=== PATIENT | female | born 1955 | race African-American/Black ===

== ENCOUNTER 2024-09-20 08:19 | Outpatient (CLI) | payer MEDICARE, SELFPAY ==
--- NOTE | ~2024-09-20 | US_ITS ---
US breast RT limited 09/20/2024 09:04 Indication: Right breast mass identified at outside institution and biopsy recommended. Procedure: High-resolution Limited ultrasound of the right breast Comparison: Ultrasound dated 08/29/2024 Findings: At 8:00, 6 cm from the nipple there is a 4 mm oval parallel oriented hypoechoic mass with e ncapsulated margins, no internal vascularity and no posterior features, likely benign. Following disc ussion with the patient she agreed to 6 month follow-up ultrasound rather than biopsy due to the pinky gn appearance of the mass. Impression: 1: Benign-appearing 4 mm right breast mass at 8:00, 6 cm from the nipple. BI-RADS CATEGORY 3-PROBABLY BENIGN FINDING RECOMMENDATION: 6 month follow-up diagnostic mammogram and Limited right breast ultrasound recommende d. Reviewed, dictated and finalized at location B. OG IC DESIGN ARCHITECT Impression: 1: Benign-appearing 4 mm right breast mass at 8:00, 6 cm from the nipple. BI-RADS CATEGORY 3-PROBABLY BENIGN FINDING RECOMMENDATION: 6 month follow-up diagnostic mammogram and Limited right breast ultrasound recommended.
--- OUTSIDE RECORDS SUMMARY | 2024-09-20 08:25 | XMS_ITS | Referral Summary ---
Author Organization [facility] Address [address] [place] [address] Care Team Providers Care Food Quality Technician Name Role Phone Marianne Stewart MD Primary Care Provider [phone] Encounters Date Type Department Care Team Description 09/03/2024 Orders Only [facility] Medical [facility] Gastroenterology at [place] [address] [facility] [address] [place] [address] Carlos Sandhu MD Screening for colon cancer (Primary Dx) 09/03/2024 Orders Only [facility] Medical Office [address] [phone] Faye Hurt NP Mass of right breast, unspecified quadrant (Primary Dx) 08/29/2024 9:09 AM VIDEO CONFERENCE SPECIALIST - 08/29/2024 11:59 PM VIDEO CONFERENCE SPECIALIST Hospital Encounter [facility] Medical Office [address] [phone] Abnormal mammogram Discharge Disposition: Discharge to home or self care 08/28/2024 Telephone [facility] Medical [facility] Family Medicine [address] [place] [address] Marianne Stewart MD Additional Services Or Orders 08/27/2024 12:41 PM VIDEO CONFERENCE SPECIALIST - 08/27/2024 11:59 PM VIDEO CONFERENCE SPECIALIST Hospital Encounter [facility] Breast Imaging [address] [place] [address] Encounter for screening mammogram for malignant neoplasm of breast Discharge Disposition: Discharge to home or self care 08/22/2024 10:30 AM VIDEO CONFERENCE SPECIALIST Telemedicine [facility] Medical Group Family Medicine [address] [place] [phone] Faye Hurt NP Mixed hyperlipidemia (Primary Dx); Hypertension, essential; Type 2 diabetes mellitus with hyperlipidemia (HCC); Vitamin D deficiency; Annual physical exam; Screening for colon cancer; Encounter for screening mammogram for malignant neoplasm of breast 07/31/2024 12:35 PM VIDEO CONFERENCE SPECIALIST Lab [facility] Lab [address] [place] [address] Type 2 diabetes mellitus with hyperlipidemia (HCC); Hyperlipidemia, unspecified hyperlipidemia type 07/16/2024 Orders Only [facility] CT [address] [place] [id number] Faye Hurt NP Nicotine dependence, cigarettes, uncomplicated (Primary Dx) 07/10/2024 12:52 PM VIDEO CONFERENCE SPECIALIST - 07/10/2024 11:59 PM VIDEO CONFERENCE SPECIALIST Hospital Encounter [facility] [address] [place] [address] Nicotine dependence, cigarettes, uncomplicated Discharge Disposition: Discharge to home or self care 06/27/2024 Orders Only [facility] CT [facility] [place] [address] Naz Esparza RN Nicotine dependence, cigarettes, uncomplicated from Last 3 Months Allergies Active Allergy Reactions Criticality Noted Date Comments Aspirin Nausea & Vomiting Low 05/16/2003 Atorvastatin Muscle pain Medium 07/19/2016 Ibuprofen Nausea & Vomiting Low 10/13/2006 Lovastatin Muscle pain Medium 11/07/2014 Pravastatin Muscle pain Medium 06/24/2009 Simvastatin Muscle pain Medium 06/06/2008 Medications UNABLE TO FIND Vitamin C complex take 1 tab po daily Active cholecalciferol (VITAMIN D-3) 2000 unit tablet Take 1 tablet (2,000 Units total) by mouth daily Active rosuvastatin (CRESTOR) 40 mg tablet Take 1 tablet (40 mg total) by mouth daily 90 tablet 1 Active amLODIPine (NORVASC) 10 mg tabletIndicatio ns:hypertension Take 1 tablet (10 mg total) by mouth daily 90 tablet 3 5 08/22/19 26 Active chlorthalidone (HYGROTON) 25 mg tabletIndicatio ns:Hypertension , essential Take 1 tablet (25 mg total) by mouth daily 90 tablet 3 5 08/22/19 26 Active empagliflozin (JARDIANCE) 10 mg tabletIndicatio ns:Heart Failure Take 1 tablet (10 mg total) by mouth daily 90 tablet 1 5 08/22/19 26 Active polyethylene glycol-electrol ytes 420 gram solution Take 4,000 mL by mouth once 5 Active rosuvastatin (CRESTOR) 40 mg tablet Take 1 tablet (40 mg total) by mouth daily 3 08/22/19 25 Discontinue d(Reorder) empagliflozin (JARDIANCE) 10 mg tabletIndicatio ns:Heart Failure Take 1 tablet (10 mg total) by mouth daily 90 tablet 3 3 08/22/19 25 Discontinue d(Reorder) chlorthalidone (HYGROTON) 25 mg tablet Take 1 tablet (25 mg total) by mouth daily 90 tablet 3 4 08/22/19 25 Discontinue d(Reorder) amLODIPine (NORVASC) 10 mg tabletIndicatio ns:hypertension Take 1 tablet (10 mg total) by mouth daily 90 tablet 3 4 08/22/19 25 Discontinue d(Reorder) buPROPion XL (WELLBUTRIN XL) 150 mg 24 hr tabletIndicatio ns:Smoking,Situ ational anxiety Take 1 tablet (150 mg total) by mouth every morning 90 tablet 4 08/22/19 25 Discontinue d(Patient Reported) polyethylene glycol (GaviLyte-N) 236-22.74-6.74 -5.86 gram solution Take 4,000 mL by mouth once for 1 dose 4000 mL 5 09/03/19 25 Active Problems Problem Noted Date Diagnosed Date Screening for colon cancer 09/03/2024 Mixed hyperlipidemia 08/22/2024 Hypertension, essential 03/29/2024 Assessment & Plan (04/09/2024 5:45 AM CDT): Chronic Stable Cont norvasc, chlorthalidone Goal: SBP<140, DBP<90 Type 2 diabetes mellitus with hyperlipidemia Assessment & Plan (04/09/2024 5:46 AM CDT): Chronic Stable Cont jardiance Goal: hgba1c<6.5 Osteopenia of lumbar spine 03/29/2024 Assessment & Plan (04/09/2024 5:45 AM CDT): Chronic Take OTC calcium Vitamin D deficiency 03/29/2024 Assessment & Plan (04/09/2024 5:47 AM CDT): Chronic Stable Cont otc vitamin d Smoking 03/29/2024 Assessment & Plan (04/09/2024 5:46 AM CDT): Patient advised on smoking cessation. Counseled on ways to cut back and advised to call office if would like advice on methods and medications used to help quit smoking. This is a chronic problem and would always recommend reducing amount of smoking in hopes of quitting completely. Spent 3-10 minutes Start wellbutrin Situational anxiety 03/29/2024 Assessment & Plan (04/09/2024 5:46 AM CDT): New Start wellbutrin Knee pain 02/20/2015 Immunizations Name Administration Dates Next Due Influenza, Quadrivalent, Spl it, Preservative Free, Intramuscular 06/06/2018,05/27/2017 Influenza, Trivalent, Preser vative Free, Intramuscular 06/03/2016,05/19/2015 Influenza, Unspecified 05/15/2023(Deferr ed: Patient Refused),05/13/2014,05/21/2013, 012,05/05/2011,05/28/2010,04/29/2009,0 08/28/2008 Moderna SARS-CoV-2 Monovalen t Vaccination (12+ YRS) 07/03/2021,10/27/2020,09/29/2020 Pneumococcal, Unspecified 04/22/2010 Td, Unspecified 06/18/2003 Tdap 04/24/2013 Social History Tobacco Use Types Packs/Day Years Used Date Smoking Tobacco: Every Day Cigarettes 0.5 40 Smokeless Tobacco: Never Tobacco Cessation:Ready to Q uit: No; Counseling Given: Not Answered Comments:Per lung screen order 01/31/23 AUDIT-C Answer Date Recorded Q1: How often do you have a drink containing alc ohol? 2-3 times a week 09/18/2024 Q2: How many drinks containi ng alcohol do you have on a typical day when you are drinking? 3 or 4 09/18/2024 Q3: How often do you have si x or more drinks on one occasion? Less than monthly 09/18/2024 PHQ-2 Answer Date Recorded PHQ-2 Total Score (If total score is 3 or more points, staff should administer the PHQ-9) 6 04/27/2024 Comments No Sex and Gender Information Value Date Recorded Sex Assigned at Not on file Legal Sex Female 11:34 AM VIDEO CONFERENCE SPECIALIST Gender Identity Not on file Sexual Orientation Not on file Last Filed Vital Signs Vital Sign Reading Time Taken Comments Blood Pressure 137/87 08/22/2024 10:26 AM VIDEO CONFERENCE SPECIALIST Pulse 91 03/29/2024 1:16 PM CDT Temperature 36.4 C (97.5 F) 03/29/2024 1:16 PM CDT Respiratory Rate 14 03/29/2024 1:16 PM CDT Oxygen Saturation 94% 03/29/2024 1:16 PM CDT Inhaled Oxygen Concentration - - Weight 83.9 kg (185 lb) 08/22/2024 10:26 AM VIDEO CONFERENCE SPECIALIST Height 158.8 cm (5' 2.5 ) 08/22/2024 10:26 AM CS T Body Mass Index 33.3 08/22/2024 10:26 AM VIDEO CONFERENCE SPECIALIST Plan of Treatment Upcoming Encounters Date Type Department Care Team (Late st Contact Info) Description 09/24/2024 10:30 AM VIDEO CONFERENCE SPECIALIST Hospital Encounter [facility] GI Lab [address] [place] [address] Carlos Sandhu MD [address] [address] 09/24/2024 10:30 AM VIDEO CONFERENCE SPECIALIST - 09/24/2024 11:00 AM VIDEO CONFERENCE SPECIALIST Surgery [facility] GI Lab [address] [place] [address] Carlos Sandhu MD [address] [place] [address] COLONOSCOPY Scheduled Procedures Name Priority Associated Diagnoses Date/Ti me COLONOSCOPY Screening for colon cancer 09/24/2024 10:30 AM VIDEO CONFERENCE SPECIALIST Procedures Procedure Name Priority Date/Time Associated Diagnosis Comments US BREAST BILATERAL LIMITED Schedule Routine, Read Routine (OP Routine) 08/29/2024 9:45 AM VIDEO CONFERENCE SPECIALIST Abnormal mammogram SCREENING MAMMOGRAM BILATERAL W EZRA Schedule Routine, Read Routine (OP Routine) 08/27/2024 12:56 PM VIDEO CONFERENCE SPECIALIST Encounter for screening mammogram for malignant neoplasm of breast EGFR Routine 07/31/2024 12:46 PM VIDEO CONFERENCE SPECIALIST Type 2 diabetes mellitus with hyperlipidemia (HCC) Hyperlipidemia, unspecified hyperlipidemia type COMPREHENSIVE METABOLIC PANEL Routine 07/31/2024 12:46 PM VIDEO CONFERENCE SPECIALIST Type 2 diabetes mellitus with hyperlipidemia (HCC) Hyperlipidemia, unspecified hyperlipidemia type LIPID PANEL Routine 07/31/2024 12:46 PM VIDEO CONFERENCE SPECIALIST Type 2 diabetes mellitus with hyperlipidemia (HCC) Hyperlipidemia, unspecified hyperlipidemia type CT LUNG CANCER SCREENING Schedule Routine, Read Routine (OP Routine) 07/10/2024 12:59 PM VIDEO CONFERENCE SPECIALIST Nicotine dependence, cigarettes, uncomplicated HEMOGLOBIN A1C Routine 04/10/2024 9:04 AM CDT Hypertension, essential Type 2 diabetes mellitus with hyperlipidemia (HCC) Osteopenia of lumbar spine Vitamin D deficiency ALBUMIN CREATININE RATIO, URINE Routine 04/10/2024 8:59 AM CDT Hypertension, essential Type 2 diabetes mellitus with hyperlipidemia (HCC) Osteopenia of lumbar spine Vitamin D deficiency DEXA AXIAL SKELETON BONE DENSITY 1 OR MORE SITES Schedule Routine, Read Routine (OP Routine) 02/07/2023 2:03 PM CDT Postmenopausal state from Last 3 Months or Most Recently Relevant to Health Maintenance Results * (ABNORMAL) US Breast Bilateral Limited (08/29/2024 9:45 AM VIDEO CONFERENCE SPECIALIST) Anatomical Region Laterality Modality Breast Bilateral Ultrasound 08/30/2024 2:31 PM VIDEO CONFERENCE SPECIALIST Impressions 08/30/2024 2:31 PM VIDEO CONFERENCE SPECIALIST Ultrasound-guided biopsy of the 8:00 right breast mass is recommended. OVERALL FINAL ASSESSMENT: BI-RADS 4A-mildly suspicious for malignancy. Tissue diagnosis is recommended. Electronically signed by: Danielle Mata M.D. Narrative 08/30/2024 2:31 PM VIDEO CONFERENCE SPECIALIST PROCEDURE: BILATERAL LIMITED BREAST ULTRASOUND HISTORY: Additional imaging COMPARISON(S): August 27, 2024, screening bilateral mammogram. Also chest CTs dated 07/10/2024 and 05/16/2023. TECHNIQUE: Cordova scale and color Doppler FINDINGS: Sonography through the 8:00 right breast demonstrates a hypoechoic mass with a maximum dimension of 5 mm. Some of the margins are circumscribed, but some are ill-defined. This accounts for the mammographic mass. In the right axilla, there are lymph nodes with cortical thickening up to 5 mm. Because these were seen, and the left axillary lymph nodes appeared similar, sonography was performed through the left axilla. Sonography through the left axilla demonstrates lymph nodes with eccentric cortical thickening up to 4 mm. The patient's prior chest CTs were reviewed. The lymph nodes appear similar in size and configuration on the CTs. This implies stability since 2022. us Faye Hurt NP IMG MAMMO PROCEDURES Final Res ult * (ABNORMAL) SCREENING MAMMOGRAM BILATERAL W EZRA (08/27/2024 12:56 PM VIDEO CONFERENCE SPECIALIST) Anatomical Region Laterality Modality Breast Bilateral Mammography Impressions 08/27/2024 1:24 PM VIDEO CONFERENCE SPECIALIST BI-RADS ATLAS category (overall): 0 - Incomplete: Needs Additional Imaging Evaluation 1. Indeterminate right breast mass as above. Further evaluation with diagnostic right breast ultrasound is recommended. 2. No mammographic evidence of malignancy in the left breast. Routine screening mammography of the left breast is recommended in 1 year. The patient has been or will be contacted. Narrative 08/27/2024 1:24 PM VIDEO CONFERENCE SPECIALIST SCREENING MAMMOGRAM BILATERAL W EZRA: 08/27/24 The study was acquired using full field digital technology and interpreted from soft copy. 2D digital mammographic views, as well as 3D digital tomosynthesis were performed in the CC and MLO projections. This study was resulted using Computer-Aided Detection (CAD). CLINICAL: Encounter for screening mammogram for malignant neoplasm of breast (Mammogram ordered.). No relevant medical history has been documented for this patient. No known family history of breast cancer. COMPARISONS: 07/27/2023 Screening Mammogram Bilateral W Ezra BREAST TISSUE: There are scattered areas of fibroglandular density. FINDINGS: There is a 4 mm oval circumscribed mass in the lower outer right breast, 5-7 cm from the nipple. There is no new suspicious finding in the left breast on mammogram. us Faye Hurt NP IMG MAMMO PROCEDURES Final Res ult * eGFR (07/31/2024 12:46 PM VIDEO CONFERENCE SPECIALIST) eGFR >90 >=60 mL/min/1. 73 m2 Comment: Interpretive Data Reference Interval Normal >/= 90 mL/min/1.73m2 Mildly decreased* 60 - 89 mL/min/1.73m2 Mildly to moderately decreased 45 - 59 mL/min/1.73m2 Moderately to severely decreased 30 - 44 mL/min/1.73m2 Severely decreased 15 - 29 mL/min/1.73m2 Kidney Failure < 15 mL/min/1.73m2 *Relative to young adult level Estimated glomerular filtration rate is determined by the 2020 CKD-EPI equation recommended by the National Kidney Foundation (A Unifying Approach to GFR Estimation: Recommendations of the NKF-ASK Task Force on Reassessing the Inclusion of Race in Diagnosing Kidney Disease, JASN 2020). The CKD-EPI equation should not be used for patients with unstable renal function and has not been validated in children and those over 70. Current interpretive data was last reviewed 2021. Blood 07/31/2024 12:4 6 PM VIDEO CONFERENCE SPECIALIST 07/31/2024 12:51 PM VIDEO CONFERENCE SPECIALIST us Faye Hurt [facility]O LAB BLOOD ORDERABLES Final Res ult [facility] [address] Department [place] [address] * (ABNORMAL) Lipid panel (07/31/2024 12:46 PM VIDEO CONFERENCE SPECIALIST) Cholesterol 212(H) 30 - 199 mg/dL Comment: Interpretive Data Ages < or = 19 years Acceptable: <170 mg/dL Borderline high: 170-199 mg/dL High: >or= 200 mg/dL Ages > or = 20 years Desirable: <200 mg/dL Borderline high: 200-239 mg/dL High: >or= 240 mg/dL Literature References: 1. Expert Panel on Integrated Guidelines for Cardiovascular Health and Risk Reduction in Children and Adolescents. Pediatrics 2011;128:S213 2. NCEP Expert Panel. Circulation 2004;110:227 Current Interpretive Data was last revised on 2018. Triglycerides 74 <=149 mg/dL [facility] Comment: Interpretive Data Ages < or = 9 years Acceptable: <75 mg/dL Borderline high: 75-99 mg/dL High: >or= 100 mg/dL Ages 10 to 20 years Acceptable: <90 mg/dL Borderline high: 90-129 mg/dL High: >or= 130 mg/dL Ages > or = 20 years Desirable: <150 mg/dL Borderline high: 150-199 mg/dL High: 200-499 mg/dL Very high: >or= 499 mg/dL Literature References: 1. Expert Panel on Integrated Guidelines for Cardiovascular Health and Risk Reduction in Children and Adolescents. Pediatrics 2011;128:S213 2. NCEP Expert Panel. Circulation 2004;110:227 Current Interpretive Data was last revised on 2018. HDL 70 >=40 mg/dL [facility] Comment: Interpretive Data Ages < or = 19 years Acceptable: >45 mg/dL Borderline low: 40-45 mg/dL Low: <40 mg/dL Ages > or = 20 years Desirable: >or= 60 mg/dL Low: <40 mg/dL Literature References: 1. Expert Panel on Integrated Guidelines for Cardiovascular Health and Risk Reduction in Children and Adolescents. Pediatrics 2011;128:S213 2. NCEP Expert Panel. Circulation 2004;110:227 Current Interpretive Data was last revised on 2018. LDL, calculated 129 <=129 mg/dL [facility] Comment: Interpretive Data Ages < or = 19 years Acceptable: <110 mg/dL Borderline high: 110-129 mg/dL High: >or= 130 mg/dL Ages > or = 20 years Optimal: <100 mg/dL Near optimal: 100-129 mg/dL Borderline high: 130-159 mg/dL High: >160 mg/dL Calculated using the Devon LDL-C estimating equation. This equation was implemented on 2024. Prior to this date LDL-C was estimated using the Friedewald equation. Literature References: 1. Expert Panel on Integrated Guidelines for Cardiovascular Health and Risk Reduction in Children and Adolescents. Pediatrics 2011;128:S213 2. NCEP Expert Panel. Circulation 2004;110:227 3. Devon Warren et al. JULIET Cardiol. 2019December 13;5(5):540-548. doi: 10.1001/jamacardio.2020.0013 Current Interpretive Data was last revised on 2024. Non-HDL Cholesterol 142 mg/dL [facility] Comment: Interpretive Data Ages < or = 19 years Acceptable: <120 mg/dL Borderline high: 120-144 mg/dL High: >145 mg/dL Ages > or = 20 years When triglycerides are >200 mg/dL, Non-HDL cholesterol is a secondary target of therapy with treatment goals that are 30 mg/dL greater than the LDL cholesterol target. Literature References: 1. Expert Panel on Integrated Guidelines for Cardiovascular Health and Risk Reduction in Children and Adolescents. Pediatrics 2011;128:S213 2. NCEP Expert Panel. Circulation 2004;110:227 Current Interpretive Data was last revised on 2018. Chol/HDL ratio 3 [facility] Blood 07/31/2024 12:4 6 PM VIDEO CONFERENCE SPECIALIST 07/31/2024 12:51 PM VIDEO CONFERENCE SPECIALIST us Faye Hurt NP LAB BLOOD ORDERABLES Final Res ult [facility] [address] Department [place] [address] * Comprehensive metabolic panel (07/31/2024 12:46 PM VIDEO CONFERENCE SPECIALIST) Sodium 139 135 - 145 mmol/L Potassium, pl 3.8 3.3 - 4.9 mmol/L [facility] Chloride 104 97 - 110 mmol/L [facility] CO2 25 22 - 32 mmol/L [facility] Anion gap 10 2 - 15 mmol/L [facility] BUN 11 6 - 25 mg/dL [facility] Creatinine 0.70 0.60 - 1.10 mg/dL [facility] Glucose 117 70 - 199 mg/dL [facility] Comment: Interpretive Data Fasting glucose >/= 126 mg/dl is diagnostic for diabetes. Fasting is defined as no caloric intake for at least 8 hours. Fasting glucose between 100 mg/dl to 125 mg/dl is diagnostic of prediabetes. In a patient with classic symptoms of hyperglycemia or hyperglycemic crisis, a random glucose >/= 200 mg/dl is diagnostic for diabetes. In the absence of unequivocal hyperglycemia, results should be confirmed by repeat testing. The classification and Diagnosis of Diabetes Diabetes Care 2021; 46: S19-S40. Current interpretive data was last revised 2022. Calcium 9.5 8.5 - 10.3 mg/dL [facility] Bilirubin, total 0.4 0.1 - 1.2 mg/dL [facility] Protein, pl 6.9 6.5 - 8.5 g/dL [facility] Albumin 4.2 3.5 - 5.0 g/dL [facility] Alk phos 71 40 - 130 Units/L [facility] ALT 9 7 - 45 Units/L [facility] AST 16 10 - 45 Units/L [facility] Blood 07/31/2024 12:4 6 PM VIDEO CONFERENCE SPECIALIST 07/31/2024 12:51 PM VIDEO CONFERENCE SPECIALIST us Faye Hurt NP LAB BLOOD ORDERABLES Final Res ult [facility] [address] Department [place] [address] * CT Lung Cancer Screening (07/10/2024 12:59 PM VIDEO CONFERENCE SPECIALIST) Anatomical Region Laterality Modality Chest N/A Computed Tomogra phy 07/15/2024 5:56 PM VIDEO CONFERENCE SPECIALIST Narrative 07/15/2024 6:15 PM VIDEO CONFERENCE SPECIALIST EXAM DESCRIPTION: CT LUNG CANCER SCREENING REASON FOR STUDY: Screening CT of the chest in a current smoker with a 21.5 pack year smoking history. Additional history: None. TECHNIQUE: Low dose CT scan of the chest was performed without intravenous contrast using helical scanning technique. The exam extends from the lung apices through the lung bases. Automatic exposure control was used as a dose optimization technique. NOTE: This study was performed for the specific purposes of lung cancer screening and is not an alternative to diagnostic chest CT. RADIATION DOSE: CT dose index volume (CTDIvol) = 2.96 mGy COMPARISON: 05/16/2023 FINDINGS: SMOKING RELATED LUNG DISEASE: No significant pulmonary emphysema. No pneumonia or pulmonary edema is seen. LUNG NODULES: Unchanged 2 mm lingular pulmonary nodule on image 159. 2 mm posterior juxtapleural nodule in the left lower lobe on image 230 of series 3. CORONARY ARTERY CALCIFICATION: Present OTHER: Cholecystectomy clips are present low attenuation thickening of the left adrenal gland is consistent with adenoma by attenuation. There is overall mild aortic athero sclerotic calcification without thoracic aortic aneurysm. The heart size is normal and there is no pericardial effusion. No mediastinal, axillary or hilar adenopathy is seen. No chest wall mass or inflammation.. There is multilevel degenerative disc disease, most pronounced in the lower cervical spine. No aggressive bone lesion or acute fracture is seen. IMPRESSION: Two 2 mm nodules in the left lung, as detailed. Lung-RADS category 2: Benign appearance or behavior. Recommendation: Low dose Screening CT of chest in 12 months. THIS IS AN ELECTRONICALLY VERIFIED FINAL REPORT 07/15/2024 6:15 PM - Electronically signed by Jared Uribe M.D. MZ T: Report ID: [id number] Reading Location: [id number] Procedure Note Jared Uribe MD - 07/15/2024 EXAM DESCRIPTION: CT LUNG CANCER SCREENING REASON FOR STUDY: Screening CT of the chest in a current smoker with a 21.5 pack year smoking history. Additional history: None. TECHNIQUE: Low dose CT scan of the chest was performed without intravenous contrast using helical scanning technique. The exam extends from the lung apices through the lung bases. Automatic exposure control was used as adose optimization technique. NOTE: This study was performed for the specific purposes of lung cancer screening and is not an alternative to diagnostic chest CT. RADIATION DOSE: CT dose index volume (CTDIvol) = 2.96 mGy COMPARISON: 05/16/2023 FINDINGS: SMOKING RELATED LUNG DISEASE: No significant pulmonaryemphysema. No pneumonia or pulmonary edema is seen. LUNG NODULES: Unchanged 2 mm lingular pulmonary nodule on image 159. 2mm posterior juxtapleural nodule in the left lower lobe on image 230 ofseries 3. CORONARY ARTERY CALCIFICATION: Present OTHER: Cholecystectomy clips are present low attenuation thickening ofthe left adrenal gland is consistent with adenoma by attenuation. There is overall mild aortic athero sclerotic calcification without thoracic aortic aneurysm. The heart size is normal and there is no pericardial effusion.No mediastinal, axillary or hilar adenopathy is seen. No chest wall mass or inflammation.. There is multilevel degenerative disc disease, mostpronounced in the lower cervical spine. No aggressive bone lesion or acute fractureis seen. IMPRESSION: Two 2 mm nodules in the left lung, as detailed. Lung-RADS category 2: Benign appearance or behavior. Recommendation: Low dose Screening CT of chest in 12 months. THIS IS AN ELECTRONICALLY VERIFIED FINAL REPORT 07/15/2024 6:15 PM - Electronically signed by Jared Uribe M.D. MZ T: Report ID: [id number] Reading Location: [place] [address] Faye Hurt NP [facility] [place]EDURES Final Result * (ABNORMAL) Hemoglobin A1c (04/10/2024 9:04 AM CDT) Hgb A1C 6.4(H) 4.0 - 5.6 % Estimated Average Glucose 137 mg/dL [facility] Comment: The ADA recommends reporting an estimated Average Glucose (eAG) with all Hemoglobin A1c results using the equation derived from a study of 507 normal and diabetic adults. Minority populations were underrepresented and children were not included. (Diabetes Care 31:9136-0877, 2008). The eAG is not equivalent to a fasting glucose. Blood 04/10/2024 9:04 AM CDT 04/10/2024 9:20 AM CDT Marianne Stewart MD LAB BLOOD ORDERABLES Jaelyn l Result Performing Organization Address [facility] Co de Phone Number [address] [place] [address] * Albumin Creatinine Ratio, Urine (04/10/2024 8:59 AM CDT) Albumin Ur <12.0 mg/L Comment: Interpretive Data No reference range established. Current interpretive data was last revised 2018. Creatinine Ur 265.0 mg/dL [facility] Comment: Interpretive Data No reference range established. Current interpretive data was last revised 2018. Albumin Creatinine Ratio, Ur <5 1 - 29 mg/g [facility] Urine 04/10/2024 8:59 AM CDT 04/10/2024 9:22 AM CDT Marianne Stewart MD LAB URINE ORDERABLES Jaelyn l Result Performing Organization Address [facility] de Phone Number [address] [place] [address] * Dexa Axial Skeleton Bone Density 1 or 2 Site (02/07/2023 2:03 PM CDT) Anatomical Region Laterality Modality Body N/A Mammography 02/07/2023 3:03 PM CDT Narrative 02/07/2023 3:04 PM CDT EXAM DESCRIPTION: DEXA AXIAL SKELETON BONE DENSITY 1 OR MORE SITES REASON FOR STUDY: 67 y/o year old F with given history of: Postmenopausal status. Patient takes vitamin-D. Gold Layer/Model: [employer] A (S/N [id number]) CLINICAL INFORMATION: Current height: 62 inches Maximum height: 62.5 inches Weight: 199 pounds Risk factors: Smoking COMPARISON: None available FINDINGS: AP LUMBAR SPINE L1-L4: Total BMD is 0.888 g/cm2 T-score is -2.4 LEFT HIP: Total BMD is 0.930 g/cm2 T-score is -0.7 Femoral neck BMD is 0.805 g/cm2 T-score is -1.0 FRAX: 10 year risk for a major osteoporotic fracture is 2.8 %, 10 year risk for a hip fracture is 0.2 % IMPRESSION: Low bone mass REFERENCE: Bone mineral density: Normal (T-score above or = -1.0) Low bone mass (T-score between -1.0 and -2.5) replaces the previously used term osteopenia Osteoporosis (T-score = or below -2.5) Medical evaluation for secondary causes of low bone mineral density may be appropriate. FRAX is a World Health Organization validated fracture risk assessment tool that calculates a person's 10 year probability of a major osteoporosis related fracture and hip fracture. According to the National Osteoporosis Foundation guidelines, postmenopausal women and men age 50 or older with low bone mass and a 10 year probability of a major osteoporosis related fracture = or greater than 20% or a 10 year probability of a hip fracture = or greater than 3% should be considered for treatment. For further information, including treatment recommendations, please refer to the 2019 ISCD Official Positions (http://www.iscd.org) and the NOF's Clinician's Guide to Prevention and Treatment of Osteoporosis (http://www.nof.org/professionals/clinical-guidelines) THIS IS AN ELECTRONICALLY VERIFIED FINAL REPORT 02/07/2023 3:04 PM - Electronically signed by Cleo De Guzman M.D. TW: TW Report ID: [id number] Reading Location: [id number] Procedure Note Cleo De Guzman MD - 02/07/2023 EXAM DESCRIPTION: DEXA AXIAL SKELETON BONE DENSITY 1 OR MORE SITES REASON FOR STUDY: 67 y/o year old F with given history of:Postmenopausal status. Patient takes vitamin-D. Gold Layer/Model: [employer] A (S/N [id number]) CLINICAL INFORMATION: Current height: 62 inches Maximum height: 62.5 inches Weight: 199 pounds Risk factors: Smoking COMPARISON: None available FINDINGS: AP LUMBAR SPINE L1-L4: Total BMD is 0.888 g/cm2 T-score is -2.4 LEFT HIP: Total BMD is 0.930 g/cm2 T-score is -0.7 Femoral neck BMD is 0.805 g/cm2 T-score is -1.0 FRAX: 10 year risk for a major osteoporotic fracture is 2.8 %, 10 year risk fora hip fracture is 0.2 % IMPRESSION: Low bone mass REFERENCE: Bone mineral density: Normal (T-score above or = -1.0) Low bone mass (T-score between -1.0 and -2.5) replaces thepreviously used term osteopenia Osteoporosis (T-score = or below -2.5) Medical evaluation for secondary causes of low bone mineral density may be appropriate. FRAX is a World Health Organization validated fracture risk assessmenttool that calculates a person's 10 year probability of a major osteoporosisrelated fracture and hip fracture. According to the National OsteoporosisFoundation guidelines, postmenopausal women and men age 50 or older with low bonemass and a 10 year probability of a major osteoporosis related fracture = or greater than 20% or a 10 year probability of a hip fracture = or greaterthan 3% should be considered for treatment. For further information, including treatment recommendations, please referto the 2019 ISCD Official Positions (http://www.iscd.org) and the NOF's Clinician's Guide to Prevention and Treatment of Osteoporosis (http://www.nof.org/professionals/clinical-guidelines) THIS IS AN ELECTRONICALLY VERIFIED FINAL REPORT 02/07/2023 3:04 PM - Electronically signed by Cleo De Guzman M.D. TW: KAY Report ID: [id number] Reading Location: [place] [address] Ilene Hester NP IMG DXA PROCEDURES Fi nal Result from Last 3 Months or Most Recently Relevant to Health Maintenance Insurance [employer] MEDICARE HMO Care Teams Food Quality Technician Relationship Specialty Start Date End Date Marianne Stewart MD [address] [place] [address] PCP - General Family Medicine 03/05/24
--- OUTSIDE RECORDS SUMMARY | 2024-09-20 08:25 | XMS_ITS | Clinical Summary ---
Author Organization [facility] Address [address] [place] [address] Care Team Providers Care Supervisor [employer] Name Role Phone Marianne Stewart MD Primary Care Provider [phone] Allergies Active Allergy Reactions Criticality Noted Date [...] by mouth daily 90 tablet 1 5 Active amLODIPine (NORVASC) 10 mg tabletIndicatio ns:hypertension [...] CDT): New Start wellbutrin Knee pain 02/20/2015 Encounters Date Type Department Care Team Description 09/03/2024 Orders Only [facility] [place] [address] [place] [phone] Carlos Sandhu MD Screening for colon cancer (Primary Dx) 09/03/2024 Orders Only [facility] [address] [address] Faye Hurt NP Mass of right breast, unspecified quadrant (Primary Dx) 08/29/2024 9:09 AM CONTROL ROOM OPERATOR - 08/29/2024 11:59 PM CONTROL ROOM OPERATOR Hospital Encounter [facility] [address] [place] [address] Abnormal mammogram Discharge Disposition: Discharge to home or self care 08/28/2024 Telephone [facility] Family Medicine [address] [place] [phone] Marianne Stewart MD Additional Services Or Orders 08/27/2024 12:41 PM CONTROL ROOM OPERATOR - 08/27/2024 11:59 PM CONTROL ROOM OPERATOR Hospital Encounter [facility] Breast Imaging [address] [place] [address] Encounter for screening mammogram for malignant neoplasm of breast Discharge Disposition: Discharge to home or self care 08/22/2024 10:30 AM CONTROL ROOM OPERATOR Telemedicine [facility] Family Medicine [address] [place] [phone] Faye Hurt NP Mixed hyperlipidemia (Primary Dx); Hypertension, essential; Type 2 diabetes mellitus with hyperlipidemia (HCC); Vitamin D deficiency; Annual physical exam; Screening for colon cancer; Encounter for screening mammogram for malignant neoplasm of breast 07/31/2024 12:35 PM CONTROL ROOM OPERATOR Lab [facility] Lab [address] [place] [address] Type 2 diabetes mellitus with hyperlipidemia (HCC); Hyperlipidemia, unspecified hyperlipidemia type 07/16/2024 Orders Only [facility] [place] [address] [place] [address] Faye Hurt NP Nicotine dependence, cigarettes, uncomplicated (Primary Dx) 07/10/2024 12:52 PM CONTROL ROOM OPERATOR - 07/10/2024 11:59 PM CONTROL ROOM OPERATOR Hospital Encounter [facility] Orthopedic [facility] CT [address] [place] [address] Nicotine dependence, cigarettes, uncomplicated Discharge Disposition: Discharge to home or self care 06/27/2024 Orders Only [facility] CT [address] [place] [address] Naz Esparza RN Nicotine dependence, cigarettes, uncomplicated from Last 3 Months Immunizations Name Administration Dates Next Due Influenza, Quadrivalent, Spl it, Preservative Free, Intramuscular 06/06/2018,05/27/2017 Influenza, Trivalent, Preser vative Free, Intramuscular 06/03/2016,05/19/2015 Influenza, Unspecified 05/15/2023(Deferr ed: Patient Refused),05/13/2014,05/21/2013, 012,05/05/2011,05/28/2010,04/29/2009,0 08/28/2008 Moderna SARS-CoV-2 Monovalen t Vaccination (12+ YRS) 07/03/2021,10/27/2020,09/29/2020 Pneumococcal, Unspecified 04/22/2010 Td, Unspecified 06/18/2003 Tdap 04/24/2013 Surgical History Surgery Date Site/Laterality Comments APPENDECTOMY 11/2004 CHOLECYSTECTOMY 11/2003 TUBAL LIGATION 08/15/1981 - 08/14/1982 Medical History Medical History Date Comments Diabetes mellitus (HCC) Hypertension Hyperlipidemia Type 2 diabetes mellitus (HCC) Family History Medical History Relation Name Comments Diabetes Mother Heart attack Mother Heart disease Mother Hypertension Mother Alcohol abuse Other Family history of alcoholism - (Added by TW Conv) Diabetes Other Family history of diabetes mellitus - (Added by TW Conv) Heart disease Other Family history of cardiac disorder - (Added by TW Conv) Hypertension Other Family history of hypertension - (Added by TW Conv) Stroke Other Family history of cerebrovascular accident - (Added by TW Conv) Relation Name Status Comments Mother Other Social History Tobacco Use Types Packs/Day Years [...] on file Legal Sex Female 11:34 AM CONTROL ROOM OPERATOR Gender Identity Not on file Sexual Orientation Not on file Obstetrics History Para Term AB IAB SAB Ectopic Multiple Livin g Live Births 5 5 5 Date Outcome GA Total Labor Labor/2nd/3rd Weight Sex Type Anes PTL Irina A1 A5 Name Clin Term Term Term Term Term Last Filed Vital Signs Vital Sign Reading Time Taken Comments Blood Pressure 137/87 08/22/2024 10:26 AM CONTROL ROOM OPERATOR Pulse 91 03/29/2024 1:16 PM CDT Temperature 36.4 C (97.5 F) 03/29/2024 1:16 PM CDT Respiratory Rate 14 03/29/2024 1:16 PM CDT Oxygen Saturation 94% 03/29/2024 1:16 PM CDT Inhaled Oxygen Concentration - - Weight 83.9 kg (185 lb) 08/22/2024 10:26 AM CONTROL ROOM OPERATOR Height 158.8 cm (5' 2.5 ) 08/22/2024 10:26 AM CS T Body Mass Index 33.3 08/22/2024 10:26 AM CONTROL ROOM OPERATOR Plan of Treatment Upcoming Encounters Date Type Department Care Team (Late st Contact Info) Description 09/24/2024 10:30 AM CONTROL ROOM OPERATOR Hospital Encounter [facility] GI Lab [address] [place] [address] Carlos Sandhu MD [address] [place] [address] 09/24/2024 10:30 AM CONTROL ROOM OPERATOR - 09/24/2024 11:00 AM CONTROL ROOM OPERATOR Surgery [facility] GI Lab [address] [place] [address] Carlos Sandhu MD [address] [place] [address] COLONOSCOPY Scheduled Procedures Name Priority Associated Diagnoses Date/Ti me COLONOSCOPY Screening for colon cancer 09/24/2024 10:30 AM CONTROL ROOM OPERATOR Health Maintenance Due Date Last Done Comments Colon Cancer Screening-Colonoscopy 1955 Hepatitis C Screening 1955 Dilated Eye Exam 1957 Foot Exam 1957 Pneumococcal vaccine 65+ (1 of 2 - PCV) 1963 04/22/2010 Hepatitis B Screening 1975 Zoster Vaccine (1 of 2) 2007 Well Visit 65+ 2022 DTaP/Tdap/Td Vaccine (2 - Td or Tdap) 04/24/2023 04/24/2013, 06/18/2003 Covid-19 Vaccine (4 - 2023-2 5 season) 2024 07/03/2021, 10/27/2020, 09/29/2020 Influenza Vaccine (#1) 2024 8, 05/27/2017, 06/03/2016, Additional history exists Hemoglobin A1C 10/11/2024 04/10/2024 Osteoporosis Screening-Bone Density Scan 02/07/2025 02/07/2023 Albumin Creatinine Ratio, Urine 04/10/2025 Depression Screening 04/27/2025 04/27/2024, 04/27/20 24 Fall Risk Assessment 04/27/2025 04/27/2024 Lung Cancer Screening 07/11/2025 07/10/2024, 023 Lipid Panel 07/31/2025 07/31/2024, 04/10/2024 eGFR 07/31/2025 07/31/2024, 04/10/2024 Breast Cancer Screening-Mammogram 08/27/2025 025, 07/27/2023 Procedures Procedure Name Priority Date/Time Associated Diagnosis Comments US BREAST BILATERAL LIMITED Schedule Routine, Read Routine (OP Routine) 08/29/2024 9:45 AM CONTROL ROOM OPERATOR Abnormal mammogram SCREENING MAMMOGRAM BILATERAL W EZRA Schedule Routine, Read Routine (OP Routine) 08/27/2024 12:56 PM CONTROL ROOM OPERATOR Encounter for screening mammogram for malignant neoplasm of breast EGFR Routine 07/31/2024 12:46 PM CONTROL ROOM OPERATOR Type 2 diabetes mellitus with hyperlipidemia (HCC) Hyperlipidemia, unspecified hyperlipidemia type COMPREHENSIVE METABOLIC PANEL Routine 07/31/2024 12:46 PM CONTROL ROOM OPERATOR Type 2 diabetes mellitus with hyperlipidemia (HCC) Hyperlipidemia, unspecified hyperlipidemia type LIPID PANEL Routine 07/31/2024 12:46 PM CONTROL ROOM OPERATOR Type 2 diabetes mellitus with hyperlipidemia (HCC) Hyperlipidemia, unspecified hyperlipidemia type CT LUNG CANCER SCREENING Schedule Routine, Read Routine (OP Routine) 07/10/2024 12:59 PM CONTROL ROOM OPERATOR Nicotine dependence, cigarettes, uncomplicated HEMOGLOBIN A1C Routine [...] US Breast Bilateral Limited (08/29/2024 9:45 AM CONTROL ROOM OPERATOR) Anatomical Region Laterality Modality Breast Bilateral Ultrasound 08/30/2024 2:31 PM CONTROL ROOM OPERATOR Impressions 08/30/2024 2:31 PM CONTROL ROOM OPERATOR Ultrasound-guided biopsy of the 8:00 right breast mass is recommended. OVERALL FINAL ASSESSMENT: BI-RADS 4A-mildly suspicious for malignancy. Tissue diagnosis is recommended. Electronically signed by: Danielle Mata M.D. Narrative 08/30/2024 2:31 PM CONTROL ROOM OPERATOR PROCEDURE: BILATERAL LIMITED BREAST ULTRASOUND HISTORY: Additional [...] the CTs. This implies stability since 2022. Faye Hurt NP IMG MAMMO PROCEDURES Final Res ult * (ABNORMAL) SCREENING MAMMOGRAM BILATERAL W EZRA (08/27/2024 12:56 PM CONTROL ROOM OPERATOR) Anatomical Region Laterality Modality Breast Bilateral Mammography Impressions 08/27/2024 1:24 PM CONTROL ROOM OPERATOR BI-RADS ATLAS category (overall): 0 - Incomplete: Needs Additional Imaging Evaluation 1. Indeterminate right breast mass as above. Further evaluation with diagnostic right breast ultrasound is recommended. 2. No mammographic evidence of malignancy in the left breast. Routine screening mammography of the left breast is recommended in 1 year. The patient has been or will be contacted. Narrative 08/27/2024 1:24 PM CONTROL ROOM OPERATOR SCREENING MAMMOGRAM BILATERAL W EZRA: 08/27/24 The [...] Res ult * eGFR (07/31/2024 12:46 PM CONTROL ROOM OPERATOR) eGFR >90 >=60 mL/min/1. 73 m2 Comment: [...] reviewed 2021. Blood 07/31/2024 12:4 6 PM CONTROL ROOM OPERATOR 07/31/2024 12:51 PM CONTROL ROOM OPERATOR us Faye Hurt NP LAB BLOOD ORDERABLES Final Res ult [facility] [address] Department [place] [address] * (ABNORMAL) Lipid panel (07/31/2024 12:46 PM CONTROL ROOM OPERATOR) Cholesterol 212(H) 30 - 199 mg/dL Comment: [...] on 2018. Triglycerides 74 <=149 mg/dL [facility] Comment: Interpretive Data Ages [...] on 2018. HDL 70 >=40 mg/dL [facility] Comment: Interpretive Data Ages [...] NCEP Expert Panel. Circulation 2004;110:227 3. Devon M et al. JULIET Cardiol. 2020 December 13;5(5):540-548. doi: 10.1001/jamacardio.2020.0013 Current Interpretive Data was last revised on 2024. Non-HDL Cholesterol 142 mg/dL [facility] Comment: Interpretive Data Ages < [...] revised on 2018. Chol/HDL ratio 3 [facility] Blood 07/31/2024 12:4 6 PM CONTROL ROOM OPERATOR 07/31/2024 12:51 PM CONTROL ROOM OPERATOR Faye Hurt TRUCK TECHNICIAN LAB BLOOD ORDERABLES Final Res ult Performing Organization Address City/[facility]/ZIP Co de Phone Number [facility] [address] Department [place] [address] * Comprehensive metabolic panel (07/31/2024 12:46 PM CONTROL ROOM OPERATOR) Sodium 139 135 - 145 mmol/L Potassium, pl 3.8 3.3 - 4.9 mmol/L [facility] Chloride 104 97 - 110 mmol/L [facility] CO2 25 22 - 32 mmol/L [facility] Anion gap 10 2 - 15 mmol/L [facility] BUN 11 6 - 25 mg/dL [facility] Creatinine 0.70 0.60 - 1.10 mg/dL [facility] Glucose 117 70 - 199 mg/dL [facility] Comment: Interpretive Data Fasting glucose >/= 126 [...] 2022. Calcium 9.5 8.5 - 10.3 mg/dL [facility] Bilirubin, total 0.4 0.1 - 1.2 mg/dL [facility] Protein, pl 6.9 6.5 - 8.5 g/dL [facility] Albumin 4.2 3.5 - 5.0 g/dL [facility] Alk phos 71 40 - 130 Units/L [facility] ALT 9 7 - 45 Units/L [facility] AST 16 10 - 45 Units/L [facility] Blood 07/31/2024 12:4 6 PM CONTROL ROOM OPERATOR 07/31/2024 12:51 PM CONTROL ROOM OPERATOR Faye Hurt TRUCK TECHNICIAN LAB BLOOD ORDERABLES Final Res ult Performing Organization Address City/[facility]/ZIP Co de Phone Number [facility] [address] Department [place] [address] * CT Lung Cancer Screening (07/10/2024 12:59 PM CONTROL ROOM OPERATOR) Anatomical Region Laterality Modality Chest N/A Computed Tomogra phy 07/15/2024 5:56 PM CONTROL ROOM OPERATOR Narrative 07/15/2024 6:15 PM CONTROL ROOM OPERATOR EXAM DESCRIPTION: CT LUNG CANCER SCREENING REASON [...] 6:15 PM - Electronically signed by Jared BASS T: Report ID: [id number] Reading Location: [id number] Procedure Note Jared Uribe MD - 07/15/2024 [...] Jared Uribe M.D. MZ T: Report ID: [id number] Reading Location: [place] [address] Faye Hurt NP [facility] PROCEDURES Final Result * (ABNORMAL) Hemoglobin [...] and children were not included. (Diabetes Care 31:5442-7466, 2008). The eAG is not equivalent to a fasting glucose. Blood 04/10/2024 9:04 AM CDT 04/10/2024 9:20 AM CDT Marianne Stewart MD LAB BLOOD ORDERABLES Jaelyn l Result Performing Organization Address [facility] de Phone Number [address] [place] [address] * Albumin Creatinine Ratio, Urine (04/10/2024 8:59 AM CDT) Albumin Ur <12.0 mg/L Comment: Interpretive Data No reference range established. Current interpretive data was last revised 2018. Creatinine Ur 265.0 mg/dL [facility] Comment: Interpretive Data No reference range established. Current interpretive data was last revised 2018. Albumin Creatinine Ratio, Ur <5 1 - 29 mg/g [facility] Urine 04/10/2024 8:59 AM CDT 04/10/2024 9:22 AM CDT Marianne Stewart MD LAB URINE ORDERABLES Jaelyn l Result Performing Organization Address [facility] de Phone Number [address] [place] [address] * Dexa Axial Skeleton Bone Density 1 or 2 Site (02/07/2023 2:03 PM CDT) Anatomical Region Laterality Modality Body N/A Mammography 02/07/2023 3:03 PM CDT Narrative 02/07/2023 3:04 PM CDT EXAM DESCRIPTION: DEXA AXIAL SKELETON BONE DENSITY 1 OR MORE SITES REASON FOR STUDY: 67 y/o year old F with given history of: Postmenopausal status. Patient takes vitamin-D. Speech Pathology Assistant/Model: [employer] A (S/N [id number]) CLINICAL INFORMATION: Current height: 62 inches Maximum [...] De Guzman M.D. TW: KAY Report ID: [id number] Reading Location: [id number] Procedure Note Cleo De Guzman MD - 02/07/2023 EXAM DESCRIPTION: DEXA AXIAL SKELETON BONE DENSITY 1 OR MORE SITES REASON FOR STUDY: 67 y/o year old F with given history of:Postmenopausal status. Patient takes vitamin-D. Speech Pathology Assistant/Model: [employer] A (S/N [id number]) CLINICAL INFORMATION: Current height: 62 inches Maximum [...] De Guzman M.D. TW: KAY Report ID: [id number] Reading Location: [place] [address] Ilene Hester NP IMG DXA PROCEDURES Fi nal Result from Last 3 Months or Most Recently Relevant to Health Maintenance Insurance [employer] MEDICARE HMO Care Teams Supervisor [employer] Relationship Specialty Start Date End Date Marianne Stewart MD [address] [place] [address] PCP - General Family Medicine 03/05/24
== END 2024-09-20 08:20 | disposition home or self-care (01) ==
PROVIDERS: Visit Provider Family Medicine
DX: R92.8 Other abnormal and inconclusive findings on diagnostic imaging of breast (principal); N63.13 Unspecified lump in the right breast, lower outer quadrant
CPT/HCPCS: 76642